=== PATIENT | male | born 1985 | race Two or more races ===

== ENCOUNTER 2024-08-12 00:43 | Emergency (ER) | payer OTHER, SELFPAY ==
[2024-08-12 00:44] VITALS: BMI 25.8
[2024-08-12 00:52] VITALS: BP 163/97; PULSE 118; RESP 18; TEMP 36.8; O2SAT 100
--- NOTE | 2024-08-12 01:00 | XR_ITS ---
Examination: PA lateral chest 2 views Technique: Upright PA lateral chest 2 views Exam date and time: August 12, 2024 0112 hrs. Indications: Chest pain today. Findings: Normal heart size. Lungs are clear. The osseous structures are intact Impression: No active disease
--- NOTE | 2024-08-12 01:01 | PD.EDRME ---
Rapid Medical Screening Exam RME Arrival date/time: 08/12/24 00:43 38-year-old male presents emergency department complaining of right-sided chest pain with right arm numbness that awoke him from his sleep. Chief Complaint: Chest Pain Time Seen by Provider: 08/12/24 00:50 Vital signs: Vital Signs Temperature 98.2 F 08/12/24 00:52 Pulse Rate 118 H 08/12/24 00:52 Respiratory Rate 18 08/12/24 00:52 Blood Pressure 163/97 H 08/12/24 00:52 Pulse Oximetry (%) 100 08/12/24 00:52 Oxygen Delivery Method Room Air 08/12/24 00:52 Vital signs reviewed by provider: Yes
[2024-08-12 01:21] LABS: Basophils % (Auto) 1 % (0-2.5); Eosinophils # (Auto) 0.4 Thou/mm3 (0.0-0.5); Eosinophils % (Auto) 5 % (0-10); Hematocrit 40.3 % (41.0-53.0); Hemoglobin 13.8 g/dL (13.5-16.0); Immature Granulocytes % (Auto) 0 % (0-0); Immature Granulocytes Auto 0.02 Thou/mm3 (0.00-0.00); Lymphocytes # (Auto) 3.1 Thou/mm3 (1.0-4.8); Lymphocytes % (Auto) 37 % (10-50); Mean Corpuscular HGB Conc 34.2 g/dl (31.0-37.0); Mean Corpuscular Hemoglobin 28.5 pg (25.0-35.0); Mean Corpuscular Volume 83 fL (80-100); Monocytes # (Auto) 0.6 Thou/mm3 (0.0-0.8); Monocytes % (Auto) 7 % (0-12); Neutrophils # (Auto) 4.4 Thou/mm3 (1.8-7.7); Neutrophils % (Auto) 51 % (37-80); Nucleated Red Blood Cell % 0 /100 WBC (0); Platelet Count 206 Thou/mm3 (140-440); RDW Standard Deviation 41.8 fL (35.1-43.9); Red Blood Count 4.84 Miln/mm3 (4.50-5.90); White Blood Count 8.5 Thou/mm3 (3.8-10.6)
[2024-08-12 01:48] LABS: Alanine Aminotransferase 34 U/L (10-49); Albumin, Serum 4.7 gm/dL (3.5-5.0); Albumin/Globulin Ratio 1.7 (1.2-2.2); Alkaline Phosphatase 103 U/L (46-116); Anion Gap 9 (7-16); Aspartate Amino Transferase 26 U/L (0-34); BUN/Creatinine Ratio 15 Ratio (12-20); Bilirubin,Total 0.4 mg/dL (0.3-1.2); Blood Urea Nitrogen 16 mg/dL (9-23); Calcium 9.7 mg/dL (8.3-10.6); Calcium (Corrected) 9.7 mg/dL (8.5-10.1); Carbon Dioxide 27.1 mMol/L (20.0-31.0); Chloride 103 mMol/L (98-107); Creatinine (Component) 1.1 mg/dL (0.6-1.3); Estimated Creatinine Clearance 80.6 mL/min (>60); Globulin 2.7 gm/dL (2.3-3.5); Glucose 171 mg/dL (74-106); Magnesium 2.2 mg/dL (1.6-2.6); Osmolality,Calculated 282 (275-295); Potassium 3.3 mMol/L (3.4-5.1); Sodium 139 mMol/L (136-145); Total Protein 7.4 gm/dL (5.7-8.2); Troponin I < 0.002 ng/mL (0.0-0.045); eGFR > 60 See Note
[2024-08-12 01:49] LABS: B-Type Natriuretic Peptide < 20 pg/mL (0-100)
[2024-08-12 02:43] LABS: Amphetamine/Methamp Scrn,U Negative (Negative); Barbiturate Screen,Urine Negative (Negative); Benzodiazepines Screen,Urine Negative (Negative); Benzoylecgonine Screen, Ur Negative (Negative); Fentanyl Screen,Urine Negative (Negative); Opiate Screen,Urine Negative (Negative); THC Screen,Urine Negative (Negative)
--- NOTE | 2024-08-12 02:52 | EDNOTE_ITS ---
ED Chest Pain RME/HPI General Chief Complaint: Chest Pain Stated Complaint: CHEST PAIN, FAST HEARTRATE Time Seen by Provider: 08/12/24 00:50 Source: patient Arrival date/time: 08/12/24 00:43 38-year-old male presents emergency department complaining of right-sided chest pain with right arm numbness that awoke him from his sleep. Patient reports recent passing of his father to heart attack. Patient denies any fever, chills, cough, shortness of breath, vomiting, nausea, or any other associated symptom. Mode of arrival: ambulatory Limitations: no limitations RME / HPI RME / HPI narrative: 08/12/24 00:43 38-year-old male presents emergency department complaining of right-sided chest pain with right arm numbness that awoke him from his sleep. Related Data Allergies Allergy/AdvReac Type Severity Reaction Status Date / Time No Known Allergies Allergy Verified 03/11/24 13:56 Review of Systems Review of Systems Systems Reviewed: All systems reviewed, normal except as documented Constitutional Constitutional: Reports system reviewed and no additional complaints, except as documented, Denies body ache(s), Denies chills and Denies fever(s) Eyes Eyes: Reports system reviewed and no additional complaints, except as documented and Denies change in vision ENT Ears, Nose, Mouth, and Throat: Reports system reviewed and no additional complaints, except as documented, Denies disequilibrium, Denies dizziness, Denies sore throat and Denies vertigo Cardiovascular Cardiovascular: Reports system reviewed and no additional complaints, except as documented, Reports chest pain and Denies dyspnea Respiratory Respiratory: Reports system reviewed and no additional complaints, except as documented, Denies chest congestion, Denies cough and Denies dyspnea Gastrointestinal Gastrointestinal: Reports system reviewed and no additional complaints, except as documented, Denies abdominal pain, Denies nausea and Denies vomiting Musculoskeletal Musculoskeletal: Reports system reviewed and no additional complaints, except as documented, Denies abnormal gait, Denies arthralgias, Reports numbness and Reports radiating pain into limb Integumentary/Breasts Skin/Breast: Reports system reviewed and no additional complaints, except as documented, Denies erythema, Denies rash and Denies wounds Neurologic Neurologic: Reports system reviewed and no additional complaints, except as documented, Denies abnormal gait, Denies disequilibrium, Denies dizziness, Reports numbness and Denies vertigo Past Medical History Social History SMOKING STATUS: Never smoker ED Exam General Limitations: Present no limitations General appearance: Present alert and in no apparent distress Head Head exam: Present atraumatic Eye Eye exam: Present normal appearance, PERRL and EOMI ENT ENT exam: Present normal exam, normal oropharynx and mucous membranes moist Neck Neck exam: Present normal inspection, full ROM and trachea midline Chest Chest inspection: Present normal inspection and symmetric chest wall rise Respiratory Respiratory exam: Present normal lung sounds bilaterally Cardiovascular Cardiovascular exam: Present regular rate, normal rhythm and normal heart sounds Abdominal Exam Abdominal exam: Present soft and normal bowel sounds Extremities Exam Extremities exam: Present normal inspection and full ROM Back Exam Back exam: Present normal inspection and full ROM Neurological Exam Neurological exam: Present alert, oriented X3 and CN II-XII intact Psychiatric Psychiatric exam: Present normal affect and normal mood Skin Skin exam: Present warm, dry, intact and normal color Course Quality Measures none Orders Category Date Time Status EKG (ED ONLY) *Do not use* NOW Care 08/12/24 01:00 Completed EKG (ED Only) Stat Exams 08/12/24 01:00 Ordered XR chest 2V Stat Exams 08/12/24 01:00 Taken BNP [B-Type Natriuretic Peptide] Stat Lab 08/12/24 01:11 Completed CBC Stat Lab 08/12/24 01:11 Completed Comprehensive Metabolic Panel Stat Lab 08/12/24 01:11 Completed Drug Screen,Urine Stat Lab 08/12/24 01:44 Completed Mag [Magnesium] Stat Lab 08/12/24 01:11 Completed Troponin I Stat Lab 08/12/24 01:11 Completed Potassium Chloride [K-Dur] Med 08/12/24 02:51 Discontinued 20 meq PO X1 ONE Vital Signs Vital signs: Vital Signs Temperature 98.2 F 08/12/24 00:52 Pulse Rate 118 H 08/12/24 00:52 Respiratory Rate 18 08/12/24 00:52 Blood Pressure 163/97 H 08/12/24 00:52 Pulse Oximetry (%) 100 08/12/24 00:52 Oxygen Delivery Method Room Air 08/12/24 00:52 100% room air within normal limits Procedures -ED EKG Interpretation #1: Date of EK08/12/24 Time of EK:56 Rate: 104 Interpretation: Interpreted by me EKG Impression: No acute ST-T changes, No ectopy, No ischemic changes, Sinus tachycardia and Normal QRS Chest Pain MDM Narrative MDM Narrative:: 38-year-old male presents emergency department complaining of right-sided chest pain with right arm numbness that awoke him from his sleep. Patient reports recent passing of his father to heart attack. Patient denies any fever, chills, cough, shortness of breath, vomiting, nausea, or any other associated symptom. CBC was unremarkable for any leukocytosis. CMP was unremarkable other than hypokalemia 3.3. Patient was given 20 of EQ's oral potassium. EKG sinus tach 104 with normal troponin. Urinalysis was unremarkable. Chest x-ray was unremarkable for any pneumonic infiltrates based on my interpr etation. Patient reported complete resolution of symptoms after all lab results were obtained. Patient instructed to have close follow-up with primary care provider and return to the emergency department for any worsening symptoms or as needed. Patient data External records reviewed:: [facility] previous records Clinical information provided by:: patient Social determinants that could affect healthcare access:: none Patient has the following chronic illnesses:: None How is presenting disease/condition affected by chronic disease/condition?: no chronic disease Evaluation data The following diagnostics were reviewed and interpreted by me:: lab results, radiology exam(s) and EKG tracing(s) Lab and/or radiology exams considered but not ordered:: Ordered Interpretation Summary: Interpreted by me Medications / Prescriptions Medications or Prescriptions considered but not ordered:: N/A Medication administrations:: Medication Administration History Discontinued Medications Potassium Chloride (Potassium Chloride 20 Meq Tabcr) 20 meq PO X1 ONE Stop: 08/12/24 02:52 Last Admin: 08/12/24 03:04 Dose: 20 meq Documented By: SEAN N/A Consultations Consultation(s) initiated? (list below): No Diagnosis Chest Pain Differential Diagnosis: fracture of rib, pneumothorax, stable angina, unstable angina pectoris, atypical chest pain, st elevation myocardial infarction, costochondritis, chest pain and biliary colic Most likely diagnosis given after review of the tests above:: Noncardiac chest pain Admission Indicated Admission indicated?: not indicated Admission Request Was there a request for admission?: No Disposition Plan Disposition Plan: Discharge Discharge Attestation Discharge Attestation: The patient and all family members were given an opportunity to ask questions and understood the discharge instructions. Discharge instructions specifically effects, indications for sooner follow up or return to the emergency department, and the expected course of current diagnosis. Patient condition: Stable Discharge Plan Plan Patient Disposition: HOME (Self Care) Disposition Comment: Stable Prescriptions/Referrals Referrals: No Primary/Family,Physician [Primary Care Provider] - In 1 week Problem List Clinical Impression: Non-cardiac chest pain Patient/Caregiver Discharge Instructions Discharge Activity: activity as tolerated Education Materials: ED Chest Pain, Uncertain Cause Additional Instructions: Drink plenty of fluids and get plenty of rest. Take Tylenol or ibuprofen as needed for pain. Follow-up with primary care provider in 2 to 3 days. Return to emergency department for any worsening symptoms or as needed. Print Language: Finnish Stand Alone Forms: Tonja Award Info., Patient Portal Info Letter PA/GAURAV Supervising Physician PA/DESIGN STUDIO CONSULTANT Supervising Physician: Dr. Morris
[2024-08-12 03:03] VITALS: BP 129/82; PULSE 90; RESP 16; O2SAT 97
[2024-08-12] MEDS: POTASSIUM CHLORIDE 20 mEq TABCR PO (03:04)
== END 2024-08-12 03:08 | disposition home or self-care (01) ==
PROVIDERS: Emergency Provider Emergency Medicine
DX: R07.89 Other chest pain (principal)
CPT/HCPCS: 36415; 71046; 80053; 80307; 83735; 83880; 84484; 85025; 93005; 99283; A9270